=== PATIENT | female | born 1980 | race Caucasian/White ===

== ENCOUNTER 2021-10-04 18:06 | Emergency (ER) | payer MEDICAID ==
[~2021-10-04] VITALS: Ht 167.6 cm; Wt 158.8 kg
[2021-10-04 19:09] LABS: Urine Bacteria NONE SEEN /hpf (None Seen); Urine Blood 3+ /uL (Negative); Urine Mucus FEW (None Seen); Urine Specific Gravity 1.031 (1.001-1.035); Urine WBC 3 /hpf (0 - 5)
[2021-10-04 19:16] LABS: Basophils # (auto) 0.1 10 ^3/uL (0-0.2); Basophils % (auto) 0.8 % (0.0-2.0); Eosinophils # (auto) 0.2 10 ^3/uL (0-0.8); Eosinophils % (auto) 1.5 % (0.0-7.0); Hematocrit 43.6 % (36.0-46.0); Hemoglobin 14.9 g/dL (12.2-16.2); Lymphocytes # (auto) 3.1 10 ^3/uL (0.4-5.4); Lymphocytes % (auto) 26.8 % (10.0-50.0); Mean Corpuscular Hemoglobin 32.5 pg (28.0-32.0); Mean Corpuscular Hgb Conc. 34.2 g/dL (32.0-36.0); Mean Corpuscular Volume 94.9 fL (80.0-100.0); Monocytes # (auto) 0.6 10 ^3/uL (0-1.3); Monocytes % (auto) 5.3 % (0.0-12.0); Neutrophils # (auto) 7.5 10 ^3/uL (1.6-8.6); Neutrophils % (auto) 65.6 % (37.0-80.0); Nucleated Red Blood Cells % 0.2 %; Red Cell Distribution Width 13.3 % (11.8-14.3); White Blood Cell 11.5 10^3/uL (4.4-10.8)
[2021-10-04 19:31] LABS: Albumin 3.6 g/dL (3.4-5.0); Calcium 8.4 mg/dL (8.5-10.1); Potassium 4.3 mmol/L (3.5-5.1)
[2021-10-04 19:35] LABS: BUN/Creatinine Ratio 18.7; Bilirubin, Total 0.3 mg/dL (0.2-1.0)
[2021-10-04] MEDS ORDERED: fentaNYL CITRATE 100 MCG/2 ML VL IV ONE (20:00)
[2021-10-04] MEDS ORDERED: TAMSULOSIN HYDROCHLORIDE 0.4 MG CAP PO ONE (21:45)
[2021-10-04] MEDS ORDERED: ONDANSETRON HCL 4 MG/2 ML VIAL IV ONE (21:45)
[2021-10-04] MEDS ORDERED: HYDROcodone-ACET 5/325MG TAB PO ONE (22:00)
[2021-10-04] MEDS ORDERED: ONDANSETRON HCL 8 MG in D5W 5% 50 ML IV ONE (22:00)
[2021-10-04] MEDS ORDERED: TAM04C PO ×2 (22:50→23:46)
[2021-10-04] MEDS ORDERED: HYDR-4902 PO ×2 (22:50→23:46)
[2021-10-04] MEDS ORDERED: ONDA-144 PO ×2 (22:50→23:46)
[2021-10-04 23:42] VITALS: BP 146/93
== END 2021-10-05 00:32 | disposition home or self-care (01) ==
LOC: ER 18:08
DX: N20.0 Calculus of kidney (principal); Z79.899 Other long term (current) drug therapy
CPT/HCPCS: 36415; 74176; 80053; 81001; 85025; 96374; 99284; J2405; J3010; J7060

== ENCOUNTER 2025-04-08 09:47 | Inpatient (IN) | payer MEDICAID ==
[~2025-04-08] VITALS: Ht 167.6 cm; Wt 177.2 kg
[~2025-04-08 09:47] MED LIST: HYDR-4902 PO; ONDA-144 PO; TAMS-35 PO
[2025-04-08 10:28] VITALS: PULSE 95; RESP 19; O2SAT 95
[2025-04-08 10:35] LABS: Urine Protein, UAD Negative (Negative)
--- NOTE | 2025-04-08 10:47 | ED.PDOC ---
History of Present Illness HPI Comments This is a 44-year-old female with past medical history of umbilical hernia , kidney stone presented to the ED with a chief complaint of severe left pelvic pain with nausea since last night. Patient states that the pain started since last night, it was sharp in nature, 04/19, localized and associated with nausea. She mentioned that she was diagnosed with umbilical hernia few years ago and she has a IUD placed 2 months ago. She denies fever, chills, vomiting, burning sensation in the urine, hematuria, altered bowel habit or any recent traveling. PCP: MD Ty Chief Complaint: Pelvic Pain Time Seen by MD: 10:24 Primary Care Provider: ANGÉLICA Allergies: Coded Allergies: NO KNOWN ALLERGIES (Unverified , 05/08/10) Home Meds Active Scripts Hydrocodone-Acetaminophen (Hydrocodone Bitartrate/AC 5-325 mg) 1 Tab Tab, 1 TAB PO [id number] PRN for 5 Days, #10 TAB Prov:WILBERT HOOVRE DO 10/04/21 Tamsulosin Hcl (Flomax) 0.4 Mg Cap, 0.4 MG PO QAM for 20 Days, #20 CAP Prov:WILBERT HOOVER DO 10/04/21 Ondansetron (Zofran) 4 Mg Tab, 4 MG PO Q8HPRN PRN for 5 Days, #12 MG Prov:WILBERT HOOVER DO 10/04/21 Information Source: Patient Mode of Arrival: Ambulatory Severity: Severe Timing: Hours Duration: Since onset Prehospital treatment: None Past Medical History PAST MEDICAL HISTORY: Denies Past Medical History (Other): Umbilical hernia Surgical History: Cholecystectomy, Denies all surgeries CHIEF GAUGER History: Denies all CHIEF GAUGER Hx Family History Family History: Reviewed,noncontributory to illness Social History Smoker: Cigarettes, Less Than 1 Pack/Day Alcohol: Occasionally Drugs: Denies Drug Use Lives In: Home Constitutional: denies: chills, diaphoresis, fatigue, fever, malaise, sweats, weakness, others EENTM: denies: blurred vision, double vision, ear bleeding, ear discharge, ear drainage, ear pain, ear ringing, eye pain, eye redness, hearing loss, mouth pain, mouth swelling, nasal discharge, nose bleeding, nose congestion, nose pain, photophobia, tearing, throat pain, throat swelling, voice changes, others Respiratory: denies: cough, hemoptysis, orthopnea, SOB at rest, shortness of breath, SOB with excertion, stridor, wheezing, others Cardiovascular: denies: chest pain, dizzy spells, diaphoresis, Dyspnea on exertion, edema, irregular heart beat, left arm pain, lightheadedness, palpitations, PND, syncope, others Gastrointestinal: reports: abdominal pain, nausea; denies: abdomen distended, blood streaked bowels, constipated, diarrhea, dysphagia, difficulty swallowing, hematemesis, melena, poor appetite, poor fluid intake, rectal bleeding, rectal pain, vomiting, others Genitourinary: denies: abnormal vagina bleeding, burning, dyspareunia, dysuria, flank pain, frequency, hematuria, incontinence, pain, , vagina discharge, urgency, others Neurological: denies: dizziness, fainting, headache, left sided numbness, left sided weakness, numbness, paresthesia, pre-existing deficit, right sided numbness, right sided weakness, seizure, speech problems, tingling, tremors, weakness, others Musculoskeletal: denies: back pain, gout, joint pain, joint swelling, muscle pain, muscle stiffness, neck pain, others Integumetry: denies: bruises, change in color, change in hair/nails, dryness, laceration, lesions, lumps, rash, wounds, others Allergic/Immunocompromised: denies: Difficulty Healing, Frequent Infections, Hives, Itching, others Hematologic/Lymphatic: denies: anemia, blood clots, easy bleeding, easy bruising, swollen glands, others Endocrine: denies: excessive hunger, excessive sweating, excessive thirst, excessive urination, flushing, intolerance to cold, intolerance to heat, unexplained weight gain, unexplained weight loss, others Psychiatric: denies: anxiety, bipolar disorder, depression, hopeless, panic disorder, schizophrenia, sleepless, suicidal, others Physical Exam General Appearance: Mild Distress HEENT: Normal ENT Inspection, Pharynx Normal, TMs Normal Neck: Full Range of Motion, Non-Tender, Normal, Normal Inspection Respiratory: Chest Non-Tender, Lungs Clear, No Accessory Muscle Use, No Respiratory Distress, Normal Breath Sounds Cardiovascular: No Edema, No JVD, No Murmur, No Gallop, Normal Peripheral Pulses, Regular Rate/Rhythm Breast Exam: Deferred Gastrointestinal: Guarding, Hernia, LLQ, Normal Bowel Sounds, Tenderness Genitalia: Deferred Pelvic: Deferred Rectal: Deferred Extremities: No calf tenderness, Normal capillary refill, Normal inspection, Normal range of motion, Non-tender, No pedal edema Neurologic: NOT DONE Cerebellar Function: NOT DONE Reflexes: NOT DONE Skin: NOT DONE Peripheral Pulses: 2+ carotid (R), 2+ carotid (L), 2+ femoral (R), 2+ femoral (L), 2+ dorsalis pedis (R), 2+ dorsalis pedis (L), 2+ Radial (R), 2+ Radial (L), 2+ Brachial (R), 2+ Brachial (L) Lymphatic: NOT DONE Was a procedure done? Was a procedure done?: No Differential Dx Considerations may include: Diverticulitis, colitis, Lt hydoureteonephrosis, incarcerated hernia, malposition of IUD X-Ray, Labs, Meds, VS Vital Signs Date Time Temp Pulse Resp B/P (MAP) Pulse Ox O2 Delivery O2 Flow Rate FiO2 04/08/25 11:25 90 16 137/93 04/08/25 10:55 95 20 147/93 04/08/25 10:28 97.1 97 19 149/70 (96) 95 97.1 04/08/25 10:28 95 19 95 Room Air* 0 21 04/08/25 09:48 98.1 108 20 160/103 96 98.1 Lab Test 04/08/25 11:40 04/08/25 10:47 04/08/25 10:06 Range/Units Urine Test Negative Negative White Blood Count 13.0 H 4.4-10.8 10^3/uL Red Blood Count 4.79 4.0-5.20 10^6/uL Hemoglobin 15.7 12.2-16.2 g/dL Hematocrit 45.1 36.0-46.0 % Mean Corpuscular Volume 94.1 80.0-100.0 fL Mean Corpuscular Hemoglobin 32.7 H 28.0-32.0 pg Mean Corpuscular Hemoglobin Concent 34.8 32.0-36.0 g/dL Red Cell Distribution Width 13.5 11.8-14.3 % Platelet Count 254 140-450 10^3/uL Mean Platelet Volume 7.7 6.9-10.8 fL Neutrophils (%) (Auto) 74.6 37.0-80.0 % Lymphocytes (%) (Auto) 18.5 10.0-50.0 % Monocytes (%) (Auto) 5.7 0.0-12.0 % Eosinophils (%) (Auto) 0.7 0.0-7.0 % Basophils (%) (Auto) 0.5 0.0-2.0 % Neutrophils # (Auto) 9.7 H 1.6-8.6 10 ^3/uL Lymphocytes # (Auto) 2.4 0.4-5.4 10 ^3/uL Monocytes # (Auto) 0.7 0-1.3 10 ^3/uL Eosinophils # (Auto) 0.1 0-0.8 10 ^3/uL Basophils # (Auto) 0.1 0-0.2 10 ^3/uL Nucleated Red Blood Cells 0.0 % Sodium Level 138 136-145 mmol/L Potassium Level 4.2 3.5-5.1 mmol/L Chloride Level 104 98-107 mmol/L Carbon Dioxide Level 26 20-31 mmol/L Anion Gap 8 5-15 Blood Urea Nitrogen 14 9-23 mg/dL Creatinine 0.80 0.550-1.02 mg/dL Glomerular Filtration Rate Calc 94 >90 mL/min BUN/Creatinine Ratio 17.5 10.0-20.0 Serum Glucose 117 H 74-106 mg/dL Calcium Level 9.9 8.7-10.4 mg/dL Urine Color Light-yellow Yellow Urine Clarity Clear Clear Urine pH 7.0 5.0-9.0 Urine Specific [place] 1.019 1.001-1.035 Urine Protein Negative Negative Urine Ketones Negative Negative Urine Blood Negative Negative /uL Urine Nitrite Negative Negative Urine Bilirubin Negative Negative Urine Urobilinogen Normal Negative mg/dL Urine Leukocyte Esterase Negative Negative /uL Urine RBC 1 0 - 4 /hpf Urine Microscopic WBC 3 0-5 /HPF Urine Squamous Epithelial Cells Few <5 /hpf Urine Bacteria None seen None Seen /hpf Urine Glucose Normal Normal mg/dL Current Medications Medications (Trade) Dose Ordered Sig/Kassie Route Start Time Stop Time Status Last Admin Morphine Sulfate 4 mg ONCE ONCE IV 04/08/25 10:45 04/08/25 10:46 DC 04/08/25 10:55 Ondansetron HCl (Zofran) 4 mg ONCE ONCE IV 04/08/25 10:45 04/08/25 10:48 DC 04/08/25 10:55 Sodium Chloride 1,000 ml @ 100 mls/hr Q10H ONCE IV 04/08/25 10:45 04/08/25 20:44 04/08/25 10:55 Ceftriaxone Sodium 50 ml @ 100 mls/hr ONCE ONCE IV 04/08/25 13:45 04/08/25 14:14 04/08/25 14:01 Metronidazole 100 ml @ 100 mls/hr ONCE ONCE IV 04/08/25 13:45 04/08/25 14:44 04/08/25 14:01 Images Reviewed?: Images reviewed and evaluated by me Time of 1ST Reevaluation: 13:45 Reevaluation 1ST: Unchanged Patient Education/Counseling: Diagnosis, Treatment Family Education/Counseling: No Family Present SEPSIS Sepsis Screen Date sepsis recognized/suspect: Apr 08, 2025 Time Sepsis recognized/suspect: 947 Recent Procedure: No On Antibiotic Therapy: No Respiratory Rate >20: No Heart Rate >90: Yes Temp<36 C (96.8 F) or >38.3 C: No SBP <90 or MAP <65 mmHG: No New Acute Mental Status Change: No Is the patient on CPAP, BIPAP,: No Physician Orders Ct Ab Pel With Iv Con Only (04/08/25 10:32) Sodium Chloride 0.9% (04/08/25 10:45) Npo (Nothing By Mouth) Diet (04/08/25 Lunch) Ceftriaxone 1gm/50ml D5w (Rocephin) (04/08/25 13:45) Metronidazole 500mg/100ml (Flagyl 500mg/ (04/08/25 13:45) Vital Signs Date Time Temp Pulse Resp B/P (MAP) Pulse Ox O2 Delivery O2 Flow Rate FiO2 04/08/25 11:25 90 16 137/93 04/08/25 10:55 95 20 147/93 04/08/25 10:28 97.1 97 19 149/70 (96) 95 97.1 04/08/25 10:28 95 19 95 Room Air* 0 21 04/08/25 09:48 98.1 108 20 160/103 96 98.1 Laboratory Tests Test 04/08/25 10:47 White Blood Count 13.0 10^3/uL (4.4-10.8) H Medications Medications Dose Ordered Sig/Kassie Route Start Time Stop Time Status Last Admin Dose Admin Ceftriaxone Sodium 50 ml @ 100 mls/hr ONCE ONCE IV 04/08/25 13:45 04/08/25 14:14 04/08/25 14:01 Metronidazole 100 ml @ 100 mls/hr ONCE ONCE IV 04/08/25 13:45 04/08/25 14:44 04/08/25 14:01 Morphine Sulfate 4 mg ONCE ONCE IV 04/08/25 10:45 04/08/25 10:46 DC 04/08/25 10:55 Ondansetron HCl 4 mg ONCE ONCE IV 04/08/25 10:45 04/08/25 10:48 DC 04/08/25 10:55 Sodium Chloride 1,000 ml @ 100 mls/hr Q10H ONCE IV 04/08/25 10:45 04/08/25 20:44 04/08/25 10:55 Departure 1 Departure Time of Disposition: 14:00 Impression: Primary Impression: Diverticulitis Additional Impression: Kidney stone on left side Disposition: 30 STILL A PATIENT Admit to: Med Surg Condition: Guarded Critical Care Note Critical Care Time?: No Stability Stability form required: RITA Luong RESIDENT Apr 08, 2025 10:47
[2025-04-08] MEDS: SODIUM CHLORIDE 0.9% 1,000 ML IV ONE ×2 (10:55→17:25)
[2025-04-08] MEDS: ONDANSETRON HCL 4 MG/2 ML VIAL IV ONE (10:55)
[2025-04-08] MEDS: MORPHINE SULFATE 4 MG/ML SYR/VIAL IV ONE (10:55)
[2025-04-08 11:10] LABS: Hematocrit 45.1 % (36.0-46.0); Hemoglobin 15.7 g/dL (12.2-16.2); Mean Corpuscular Hemoglobin 32.7 pg (28.0-32.0); Mean Corpuscular Volume 94.1 fL (80.0-100.0); Nucleated Red Blood Cells % 0.0 %
[2025-04-08 11:14] LABS: Chloride 104 mmol/L (98-107); Potassium 4.2 mmol/L (3.5-5.1); Sodium 138 mmol/L (136-145)
[2025-04-08 11:15] LABS: Carbon Dioxide 26 mmol/L (20-31)
[2025-04-08 11:16] LABS: Calcium 9.9 mg/dL (8.7-10.4)
[2025-04-08 11:17] LABS: Anion Gap 8 (5-15)
[2025-04-08 11:20] LABS: BUN/Creatinine Ratio 17.5 (10.0-20.0); Blood Urea Nitrogen 14 mg/dL (9-23); Glucose 117 mg/dL (74-106)
[2025-04-08] MEDS: IOHEXOL 300 MG/ML 100ML BOTTLE IJ ONE (11:55)
--- NOTE | 2025-04-08 12:56 | DVH ---
Exam: CT CT AB PEL WITH IV CON ONLY History: Lt pelvic pain COMPARISON: None Technique: Multidetector spiral CT of the abdomen and pelvis was performed from lung bases to pubic symphysis. Intravenous contrast was administered during this examination. Portal venous imaging was obtained. Axial, coronal and sagittal multiplanar reformats were performed by the technologist on a separate workstation. Radiation Dose : Abdomen/Pelvis: CTDIvol 27.87 mGy, DLP 1727.62 mGy*cm. CONTRAST: Type of contrast: Omni 300 Contrast injected: 100 mL Findings: Lung Bases: No acute or significant lung base finding. Normal heart size. No pleural or pericardial effusion. Liver: Diffuse hepatic steatosis. Gallbladder and biliary Tree: Gallbladder is surgically absent. Spleen: Unremarkable Pancreas: The pancreas is normal in appearance without focal lesions or abnormal enhancement. Adrenal Glands: Unremarkable Kidneys: No hydronephrosis. Bladder: Unremarkable Bowel: The stomach is grossly normal in appearance. Small bowel and colon are normal in caliber and d istribution. Normal appendix is visualized in the right lower quadrant without findings of appendicit is. Sigmoid diverticulosis. Wall thickening and adjacent stranding of the sigmoid colon. No loculate d fluid collection identified. Ascites: Absent Lymphadenopathy: No mesenteric, retroperitoneal or periportal lymphadenopathy. Abdominal wall and Mesentery: Fat containing periumbilical hernia. Vasculature: The visualized abdominal aorta is normal in size and caliber. Abdominal and pelvic vess els demonstrate normal enhancement. Pelvic Organs: Intrauterine device in place. Musculoskeletal: No aggressive focal bony lesions, acute fractures or dislocation. IMPRESSION: 1. Acute diverticulitis. No pericolonic abscess identified. Clinical correlation and continued follo w-up is recommended. 2. Diffuse hepatic steatosis. Fat containing periumbilical hernia. Radiation optimization: All CT scans at this facility use at least one of these dose optimization jael hniques: Automated exposure control mA and/or kV adjustment per patient size (includes targeted exams where dose is matched to clinical indication) or iterative reconstruction. HS:Y
[2025-04-08] MEDS: cefTRIAXone 1GM/50ML D5W 50 ML IV ONE (14:01)
[2025-04-08] MEDS: KETOROLAC TROMETH 30 MG/ML 1ML VIAL IV ONE (14:41)
[2025-04-08] MEDS ORDERED: DOCUSATE SOD 100 MG CAP PO PRN (16:45)
[2025-04-08] MEDS ORDERED: ACETAMINOPHEN 325 MG TAB PO PRN (16:45)
--- NOTE | 2025-04-08 17:00 | DVHHP2 ---
History of Present Illness Reason for Visit: Abdominal pain History of Present Illness Precious Montemayor is a 44-year-old female with no significant past medical history, who came to the hospital due to abdominal pain. Patient states her stomach began hurting around 1999 last night. The pain continued to worsen prompting her to come in. She states she has never been diagnosed with diverticulosis and this is the first time she has experienced anything like this. Past Surgical History: Cholecystectomy Smoke: <1 pack per day ALCOHOL: rare Drugs: None Lives: with Family Domestic Violence: Neg Review of Systems Constitutional: No: Fever, Chills, Sweats, Weakness, Malaise, Other Eyes: No: Pain, Vision change, Conjunctivae inflammation, Eyelid inflammation, Other, Redness ENT: No: Ear pain, Ear discharge, Nose pain, Nose discharge, Nose congestion, Mouth pain, Mouth swelling, Throat pain, Throat swelling, Other Respiratory: No: Cough, Dry, Shortness of breath, SOB with excertion, Wheezing, Hemoptysis, Pleuritic Pain, Sputum, Wheezing, Other Cardiovascular: No: Chest Pain, Palpitations, Orthopnea, Paroxysmal Noc. Dyspnea, Edema, Lt Headedness, Other Gastrointestinal: Nausea, Abdominal Pain; No: Vomiting, Diarrhea, Constipation, Melena, Hematochezia, Other Genitourinary: No Dysuria, No Frequency, No Incontinence, No Hematuria, No Retention, No Other Musculoskeletal: No: other, neck pain, shoulder pain, arm pain, back pain, hand pain, leg pain, foot pain Skin: No: Rash, Lesions, Jaundice, Bruising, Other Neurological: No: Weakness, Numbness, Incoordination, Change in speech, Confusion, Seizures, Other Allergies: Coded Allergies: NO KNOWN ALLERGIES (Unverified , 05/08/10) Medications Current Medications Medications Dose Ordered Sig/Kassie Route Start Time Stop Time Status Last Admin Dose Admin Acetaminophen/ Hydrocodone Bitart 1 tab Q4HP PRN PO 04/08/25 16:45 UNV Ondansetron HCl 4 mg Q4HP PRN IV 04/08/25 16:45 UNV Docusate Sodium 100 mg BIDPRN PRN PO 04/08/25 16:45 UNV Acetaminophen 650 mg Q6HP PRN PO 04/08/25 16:45 UNV Ceftriaxone Sodium 50 ml @ 100 mls/hr DAILY@09 IV 04/09/25 09:00 UNV Metronidazole 100 ml @ 100 mls/hr Q8HR IV 04/08/25 22:00 UNV Exam Vital Signs Vital Signs Date Time Temp Pulse Resp B/P (MAP) Pulse Ox O2 Delivery O2 Flow Rate FiO2 04/08/25 15:21 97 Room Air* 0 21 04/08/25 14:45 98.2 88 18 143/86 (105) 98.2 General Appearance: Alert, Oriented X3, Cooperative, mild distress HEENT: Atraumatic, PERRLA Respiratory: Clear to auscultation, Normal air movement Cardiovascular: Regular rate, Normal S1, Normal S2, No murmurs Abdominal: Normal bowel sounds, Soft, Other (LLQ pain) Extremities: No clubbing, No cyanosis, No edema, Normal pulses, No tenderness/swelling Skin: No rashes, No breakdown, No significant lesion Neuro: Normal gait, Normal speech, Strength at 5/5 X4 ext Psych/Mental Status: Mental status NL, Mood NL Labs/Xrays Labs Test 04/08/25 11:40 04/08/25 10:47 04/08/25 10:06 Range/Units Urine Test Negative Negative White Blood Count 13.0 H 4.4-10.8 10^3/uL Red Blood Count 4.79 4.0-5.20 10^6/uL Hemoglobin 15.7 12.2-16.2 g/dL Hematocrit 45.1 36.0-46.0 % Mean Corpuscular Volume 94.1 80.0-100.0 fL Mean Corpuscular Hemoglobin 32.7 H 28.0-32.0 pg Mean Corpuscular Hemoglobin Concent 34.8 32.0-36.0 g/dL Red Cell Distribution Width 13.5 11.8-14.3 % Platelet Count 254 140-450 10^3/uL Mean Platelet Volume 7.7 6.9-10.8 fL Neutrophils (%) (Auto) 74.6 37.0-80.0 % Lymphocytes (%) (Auto) 18.5 10.0-50.0 % Monocytes (%) (Auto) 5.7 0.0-12.0 % Eosinophils (%) (Auto) 0.7 0.0-7.0 % Basophils (%) (Auto) 0.5 0.0-2.0 % Neutrophils # (Auto) 9.7 H 1.6-8.6 10 ^3/uL Lymphocytes # (Auto) 2.4 0.4-5.4 10 ^3/uL Monocytes # (Auto) 0.7 0-1.3 10 ^3/uL Eosinophils # (Auto) 0.1 0-0.8 10 ^3/uL Basophils # (Auto) 0.1 0-0.2 10 ^3/uL Nucleated Red Blood Cells 0.0 % Sodium Level 138 136-145 mmol/L Potassium Level 4.2 3.5-5.1 mmol/L Chloride Level 104 98-107 mmol/L Carbon Dioxide Level 26 20-31 mmol/L Anion Gap 8 5-15 Blood Urea Nitrogen 14 9-23 mg/dL Creatinine 0.80 0.550-1.02 mg/dL Glomerular Filtration Rate Calc 94 >90 mL/min BUN/Creatinine Ratio 17.5 10.0-20.0 Serum Glucose 117 H 74-106 mg/dL Calcium Level 9.9 8.7-10.4 mg/dL Urine Color Light-yellow Yellow Urine Clarity Clear Clear Urine pH 7.0 5.0-9.0 Urine Specific [place] 1.019 1.001-1.035 Urine Protein Negative Negative Urine Ketones Negative Negative Urine Blood Negative Negative /uL Urine Nitrite Negative Negative Urine Bilirubin Negative Negative Urine Urobilinogen Normal Negative mg/dL Urine Leukocyte Esterase Negative Negative /uL Urine RBC 1 0 - 4 /hpf Urine Microscopic WBC 3 0-5 /HPF Urine Squamous Epithelial Cells Few <5 /hpf Urine Bacteria None seen None Seen /hpf Urine Glucose Normal Normal mg/dL Exam: CT CT AB PEL WITH IV CON ONLY Findings: Lung Bases: No acute or significant lung base finding. Normal heart size. No pleural or pericardial effusion. Liver: Diffuse hepatic steatosis. Gallbladder and biliary Tree: Gallbladder is surgically absent. Spleen: Unremarkable Pancreas: The pancreas is normal in appearance without focal lesions or abnormal enhancement. Adrenal Glands: Unremarkable Kidneys: No hydronephrosis. Bladder: Unremarkable Bowel: The stomach is grossly normal in appearance. Small bowel and colon are normal in caliber and distribution. Normal appendix is visualized in the right lower quadrant without findings of appendicitis. Sigmoid diverticulosis. Wall thickening and adjacent stranding of the sigmoid colon. No loculated fluid collection identified. Ascites: Absent Lymphadenopathy: No mesenteric, retroperitoneal or periportal lymphadenopathy. Abdominal wall and Mesentery: Fat containing periumbilical hernia. Vasculature: The visualized abdominal aorta is normal in size and caliber. Abdominal and pelvic vessels demonstrate normal enhancement. Pelvic Organs: Intrauterine device in place. Musculoskeletal: No aggressive focal bony lesions, acute fractures or dislocation. IMPRESSION: 1. Acute diverticulitis. No pericolonic abscess identified. Clinical correlation and continued follow-up is recommended. 2. Diffuse hepatic steatosis. Fat containing periumbilical hernia. SEPSIS Sepsis Screen Date sepsis recognized/suspect: Apr 08, 2025 Time Sepsis recognized/suspect: 1520 Recent Procedure: No On Antibiotic Therapy: No Respiratory Rate >20: No Heart Rate >90: No Temp<36 C (96.8 F) or >38.3 C: No SBP <90 or MAP <65 mmHG: No New Acute Mental Status Change: No Is the patient on CPAP, BIPAP,: No Physician Orders Ct Ab Pel With Iv Con Only (04/08/25 10:32) Sodium Chloride 0.9% (04/08/25 10:45) Admit (04/08/25 16:42) Code Status (04/08/25 16:42) Hydrocodone-Acet 5/325mg Tab ([place] 5/32 (04/08/25 16:45) Ondansetron Hcl (Zofran) (04/08/25 16:45) Docusate Sodium Capsule (Colace Capsule) (04/08/25 16:45) Complete Blood Count (04/09/25 04:00) Comprehensive Metabolic Panel (04/09/25 04:00) Condition: Serious (04/08/25 16:42) Acetaminophen Tablet (Tylenol Tablet) (04/08/25 16:45) Clear Liq Diet (04/08/25 Dinner) Ceftriaxone 1gm/50ml D5w (Rocephin) (04/09/25 09:00) Metronidazole 500mg/100ml (Flagyl 500mg/ (04/08/25 22:00) Vital Signs Date Time Temp Pulse Resp B/P (MAP) Pulse Ox O2 Delivery O2 Flow Rate FiO2 04/08/25 15:21 97 Room Air* 0 21 04/08/25 14:45 98.2 88 18 143/86 (105) 95 98.2 04/08/25 11:25 90 16 137/93 04/08/25 10:55 95 20 147/93 04/08/25 10:28 97.1 97 19 149/70 (96) 95 97.1 04/08/25 10:28 95 19 95 Room Air* 0 21 04/08/25 09:48 98.1 108 20 160/103 96 98.1 Laboratory Tests Test 04/08/25 10:47 White Blood Count 13.0 10^3/uL (4.4-10.8) H Medications Medications Dose Ordered Sig/Kassie Route Start Time Stop Time Status Last Admin Dose Admin Ceftriaxone Sodium 50 ml @ 100 mls/hr ONCE ONCE IV 04/08/25 13:45 04/08/25 14:14 DC 04/08/25 14:01 100 MLS/HR Ketorolac Tromethamine 15 mg ONCE ONCE IV 04/08/25 14:30 04/08/25 14:31 DC 04/08/25 14:41 15 MG Metronidazole 100 ml @ 100 mls/hr ONCE ONCE IV 04/08/25 13:45 04/08/25 14:44 DC 04/08/25 14:01 100 MLS/HR Morphine Sulfate 4 mg ONCE ONCE IV 04/08/25 10:45 04/08/25 10:46 DC 04/08/25 10:55 4 MG Ondansetron HCl 4 mg ONCE ONCE IV 04/08/25 10:45 04/08/25 10:48 DC 04/08/25 10:55 4 MG Sodium Chloride 1,000 ml @ 100 mls/hr Q10H ONCE IV 04/08/25 10:45 04/08/25 20:44 04/08/25 10:55 100 MLS/HR Assessment/Plan Assessment/Plan Assessment: Diverticulitis, Leukocytosis, Morbid obesity, Plan: Admit to Med-Surg, GI consult, Clear liquid diet, IV antibiotics, IV hydration, IV Protonix, Plan discussed with: Patient My Orders Orders - HOA BRADFORD Procedure Category Date Status Time Admit ADMIT 04/08/25 Transmitted 16:42 Code Status CODE 04/08/25 Transmitted 16:42 Hydrocodone-Acet PHA 04/08/25 Logged 5/325mg Tab ([place] 16:45 Ondansetron Hcl PHA 04/08/25 Logged (Zofran) 16:45 Docusate Sodium PHA 04/08/25 Logged Capsule (Colace 16:45 Complete Blood Count LAB 04/09/25 Verified 04:00 Comprehensive LAB 04/09/25 Verified Metabolic Panel 04:00 Condition: Serious VLADIMIR 04/08/25 In Process 16:42 Acetaminophen Tablet PHA 04/08/25 Logged (Tylenol Tablet) 16:45 Clear Liq Diet DIET 04/08/25 Transmitted Dinner Ceftriaxone 1gm/50ml PHA 04/09/25 Logged D5w (Rocephin) 09:00 Metronidazole [facility] 04/08/25 Logged 500mg/100ml (Flagyl 22:00 Date of Service: Apr 08, 2025 Billing Provider: HOA BRADFORD Common Visit Codes: [id number] INP/OBS CARE (MOD) HOA BRADFORD Apr 08, 2025 17:00
[2025-04-08 19:15] VITALS: BP 121/68; PULSE 88; RESP 17; TEMP 97.6; O2SAT 95
[2025-04-08 23:04] VITALS: BP 121/68; PULSE 77; PULSE 88; RESP 17; RESP 18; TEMP 97.6; O2SAT 95; O2SAT 99
[2025-04-08] MEDS: HYDROcodone-ACET 5/325MG TAB PO PRN (23:08)
[2025-04-09] VITALS (8 sets, daily range): BP systolic 104–116; BP diastolic 63–76; PULSE 67–83; RESP 17–21; TEMP 97–98.2; O2SAT 93–97
[2025-04-09] MEDS: KETOROLAC TROMETH 30 MG/ML 1ML VIAL IV ONE (04:30)
[2025-04-09 06:58] LABS: Hematocrit 37.7 % (36.0-46.0); Hemoglobin 13.5 g/dL (12.2-16.2); Mean Corpuscular Hemoglobin 33.7 pg (28.0-32.0); Mean Corpuscular Volume 93.9 fL (80.0-100.0); Nucleated Red Blood Cells % 0.1 %
[2025-04-09 07:10] LABS: Alanine Aminotransferase 11 U/L (7-40); Alkaline Phosphatase 71 U/L (46-116); Anion Gap 7 (5-15); BUN/Creatinine Ratio 15.5 (10.0-20.0); Blood Urea Nitrogen 13 mg/dL (9-23); Calcium 9.0 mg/dL (8.7-10.4); Carbon Dioxide 28 mmol/L (20-31); Chloride 103 mmol/L (98-107); Glucose 105 mg/dL (74-106); Potassium 3.8 mmol/L (3.5-5.1); Sodium 138 mmol/L (136-145)
[2025-04-09 07:11] LABS: Albumin 3.8 g/dL (3.2-4.8); Bilirubin, Total 1.0 mg/dL (0.2-1.0); Total Protein 5.6 g/dL (5.7-8.2)
[2025-04-09] MEDS: cefTRIAXone 1GM/50ML D5W 50 ML IV SCH (09:34)
[2025-04-09] MEDS: PANTOPRAZOLE 40 MG/10 ML VIAL INJ IV SCH (09:34)
--- NOTE | 2025-04-09 10:23 | DVHPN2 ---
Progress Note Date Seen: Apr 09, 2025 Medical Necessity Reason Pt with a Central, PICC or Fol: No Subjective Patient reports: No new complaints Review of Systems: HEENT:Normal, CVS:Normal, RESPIRATORY:Normal, GI:Normal, :Normal, MSK:Normal, NEURO:Normal Objective vital signs Vital Sign Date Time Temp Pulse Resp B/P (MAP) Pulse Ox O2 Delivery O2 Flow Rate FiO2 04/09/25 09:00 97.6 75 20 110/75 (87) 93 97.6 04/08/25 23:04 Room Air* 0 21 Total Intake and Output 04/08/25 04/08/25 04/09/25 15:00 23:00 07:00 Intake Total 1000 ml 150 ml 150 ml Balance 1000 ml 150 ml 150 ml medications Current Medications Medications Dose Ordered Sig/Kassie Route Start Time Stop Time Status Last Admin Dose Admin Acetaminophen/ Hydrocodone Bitart 1 tab Q4HP PRN PO 04/08/25 16:45 04/09/25 09:45 1 TAB Ondansetron HCl 4 mg Q4HP PRN IV 04/08/25 16:45 Docusate Sodium 100 mg BIDPRN PRN PO 04/08/25 16:45 Acetaminophen 650 mg Q6HP PRN PO 04/08/25 16:45 Ceftriaxone Sodium 50 ml @ 100 mls/hr DAILY@09 IV 04/09/25 09:00 04/09/25 09:34 100 MLS/HR Metronidazole 100 ml @ 100 mls/hr Q8HR IV 04/08/25 22:00 04/09/25 05:58 100 MLS/HR Pantoprazole Sodium 40 mg DAILY IV 04/09/25 10:00 04/09/25 09:34 40 MG Examination: GENERAL:Normal, HEENT:Normal, NECK:Normal, LUNGS:Normal, CVS:Normal, ABDOMEN:Normal, ABDOMEN:Abnormal (abd tenderness), MSK:Normal, SKIN:Normal, NEURO:Normal, :Normal laboratory and microbiology Laboratory Tests 04/09/25 06:18 Test 04/09/25 06:18 Range/Units Serum Glucose 105 74-106 mg/dL Problem List/Assessment/Plan Problem List/Assessment/Plan #1 acute diverticulitis/sepsis: ivf, pain meds, iv antibiotics #2 morbid obesity Plan discussed with: Patient Date of Service: Apr 09, 2025 Billing Provider: ARLENE STAHL MD Common Visit Codes: [id number] INP/OBS CARE(HIGH) ARLENE STAHL MD Apr 09, 2025 10:22
[2025-04-09] MEDS: SODIUM CHLORIDE 0.9% 1,000 ML IV SCH (10:30)
[2025-04-09] MEDS: MORPHINE SULFATE INJ 2 MG/ml SYRG IV PRN (23:04)
[2025-04-09] MEDS: ONDANSETRON HCL 4 MG/2 ML VIAL IV PRN (23:04)
[2025-04-10] VITALS (8 sets, daily range): BP systolic 109–122; BP diastolic 64–93; PULSE 61–88; RESP 17–20; TEMP 97.9–98.1; O2SAT 94–98
[2025-04-10 06:09] LABS: Hematocrit 36.6 % (36.0-46.0); Hemoglobin 13.1 g/dL (12.2-16.2); Mean Corpuscular Hemoglobin 33.7 pg (28.0-32.0); Mean Corpuscular Volume 94.3 fL (80.0-100.0); Nucleated Red Blood Cells % 0.1 %
[2025-04-10 06:25] LABS: Chloride 104 mmol/L (98-107); Potassium 4.1 mmol/L (3.5-5.1); Sodium 140 mmol/L (136-145)
[2025-04-10 06:26] LABS: Anion Gap 7 (5-15); Carbon Dioxide 29 mmol/L (20-31)
[2025-04-10 06:27] LABS: Calcium 8.5 mg/dL (8.7-10.4)
[2025-04-10 06:31] LABS: BUN/Creatinine Ratio 10.7 (10.0-20.0); Blood Urea Nitrogen 9 mg/dL (9-23); Glucose 93 mg/dL (74-106)
--- NOTE | 2025-04-10 13:27 | DVHINCON2 ---
GI Consult Consult Note GI consult note Date of Consultation: 04/10/2024 Chief Complaint: Diverticulitis Referring Physician: Michael KHALIL H&P: 44-year-old female admitted to the hospital with abdominal pain. Patient complains of pain in mostly in the left lower quadrant. Denies fevers or chills. No nausea or vomiting. No melena or red blood in stool. No EGD or colonoscopy in past Past Medical History: Denies Past Surgical History: Cholecystectomy Social History: +smoking, denies drinking ETOH and use of illegal drugs. Family History: Noncontributory Review of Systems: Constitutional: no fever, chill, weight loss HEENT: no eye pain, no hearing loss, no oral lesion, no scleral icterus Heart: no chest pain, no chest pressure Lung: no cough, no dyspnea with exertion Abdomen: see HPI Physical exam: General: NAD, AAOX3 Chest: lung craft clear to auscultation Heart: RRR, no murmur Abdomen: Mild left lower quadrant tenderness to palpation, +BS Labs: Labs Test 04/10/25 04:41 04/09/25 06:18 04/08/25 11:40 04/08/25 10:06 Range/Units White Blood Count 8.8 4.4-10.8 10^3/uL Red Blood Count 3.88 L 4.0-5.20 10^6/uL Hemoglobin 13.1 12.2-16.2 g/dL Hematocrit 36.6 36.0-46.0 % Mean Corpuscular Volume 94.3 80.0-100.0 fL Mean Corpuscular Hemoglobin 33.7 H 28.0-32.0 pg Mean Corpuscular Hemoglobin Concent 35.7 32.0-36.0 g/dL Red Cell Distribution Width 13.8 11.8-14.3 % Platelet Count 202 140-450 10^3/uL Mean Platelet Volume 7.8 6.9-10.8 fL Neutrophils (%) (Auto) 63.2 37.0-80.0 % Lymphocytes (%) (Auto) 28.6 10.0-50.0 % Monocytes (%) (Auto) 6.2 0.0-12.0 % Eosinophils (%) (Auto) 1.6 0.0-7.0 % Basophils (%) (Auto) 0.4 0.0-2.0 % Neutrophils # (Auto) 5.6 1.6-8.6 10 ^3/uL Lymphocytes # (Auto) 2.5 0.4-5.4 10 ^3/uL Monocytes # (Auto) 0.5 0-1.3 10 ^3/uL Eosinophils # (Auto) 0.1 0-0.8 10 ^3/uL Basophils # (Auto) 0 0-0.2 10 ^3/uL Nucleated Red Blood Cells 0.1 % Sodium Level 140 136-145 mmol/L Potassium Level 4.1 3.5-5.1 mmol/L Chloride Level 104 98-107 mmol/L Carbon Dioxide Level 29 20-31 mmol/L Anion Gap 7 5-15 Blood Urea Nitrogen 9 9-23 mg/dL Creatinine 0.84 0.550-1.02 mg/dL Glomerular Filtration Rate Calc 88 >90 mL/min BUN/Creatinine Ratio 10.7 10.0-20.0 Serum Glucose 93 74-106 mg/dL Calcium Level 8.5 L 8.7-10.4 mg/dL Total Bilirubin 1.0 0.2-1.0 mg/dL Aspartate Amino Transferase (AST) 17 13-40 U/L Alanine Aminotransferase (ALT) 11 7-40 U/L Alkaline Phosphatase 71 46-116 U/L Total Protein 5.6 L 5.7-8.2 g/dL Albumin 3.8 3.2-4.8 g/dL Urine Test Negative Negative Urine Color Light-yellow Yellow Urine Clarity Clear Clear Urine pH 7.0 5.0-9.0 Urine Specific [place] 1.019 1.001-1.035 Urine Protein Negative Negative Urine Ketones Negative Negative Urine Blood Negative Negative /uL Urine Nitrite Negative Negative Urine Bilirubin Negative Negative Urine Urobilinogen Normal Negative mg/dL Urine Leukocyte Esterase Negative Negative /uL Urine RBC 1 0 - 4 /hpf Urine Microscopic WBC 3 0-5 /HPF Urine Squamous Epithelial Cells Few <5 /hpf Urine Bacteria None seen None Seen /hpf Urine Glucose Normal Normal mg/dL Imaging: CT Abdomen pelvis IMPRESSION: 1. Acute diverticulitis. No pericolonic abscess identified. Clinical correl ation and continued follow-up is recommended. 2. Diffuse hepatic steatosis. Fat containing periumbilical hernia. Assessment: Abdominal pain Acute diverticulitis Hepatic steatosis Periumbilical hernia Plan: Discussed with Dr. Nuno Mendes IV antibiotics Diet as tolerated Outpatient follow-up in GI clinic for further follow-up and recommendations Thank you for this consult Date of Service: Apr 10, 2025 Billing Provider: ENID SIMEON Common Visit Codes: CONSULT ONLY Consultation Codes: [id number] CONSULT <45MIN ENID SIMEON Apr 10, 2025 13:27
--- NOTE | 2025-04-10 16:39 | DVHPN2 ---
Subjective Better Changes from previous H/P or p: Changes Eyes: No Pain, No Vision change, No Conjunctivae inflammation, No Eyelid inflammation, No Other, No Redness ENT: No Ear pain, No Ear discharge, No Nose pain, No Nose discharge, No Nose congestion, No Mouth pain, No Mouth swelling, No Throat pain, No Throat swelling, No Other Cardiovascular: No Chest Pain, No Palpitations, No Orthopnea, No Paroxysmal Noc. Dyspnea, No Edema, No Lt Headedness, No Other Respiratory: No Cough, No Dry, No Shortness of breath, No SOB with excertion, No Wheezing, No Hemoptysis, No Pleuritic Pain, No Sputum, No Other Gastrointestinal: Nausea; No Vomiting; Abdominal Pain; No Diarrhea, No Constipation, No Melena, No Hematochezia, No Other Genitourinary: No Dysuria, No Frequency, No Incontinence, No Hematuria, No Retention, No Other Musculoskeletal: No other, No neck pain, No shoulder pain, No arm pain, No back pain, No hand pain, No leg pain, No foot pain Skin: No Rash, No Lesions, No Jaundice, No Bruising, No Other Objective Vitals Vital Signs Date Time Temp Pulse Resp B/P (MAP) Pulse Ox O2 Delivery O2 Flow Rate FiO2 04/10/25 13:50 98.0 61 17 109/72 (84) 96 98.0 04/10/25 07:40 Room Air* 0 21 Intake/Output Intake and Output 04/10/25 07:00 Intake Total 2600 ml Balance 2600 ml Intake Oral 2450 ml IV Total 150 ml # Voids 4 General Appearance: Alert, Oriented X3, Cooperative Lungs: Clear to auscultation Cardiovascular: Regular rate, Normal S1, Normal S2 Abdomen: Normal bowel sounds, Soft, No tenderness Extremities: No edema Medications Current Medications Medications Dose Ordered Sig/Kassie Route Start Time Stop Time Status Last Admin Dose Admin Acetaminophen/ Hydrocodone Bitart 1 tab Q4HP PRN PO 04/08/25 16:45 04/10/25 14:54 1 TAB Ondansetron HCl 4 mg Q4HP PRN IV 04/08/25 16:45 04/09/25 23:04 4 MG Docusate Sodium 100 mg BIDPRN PRN PO 04/08/25 16:45 Acetaminophen 650 mg Q6HP PRN PO 04/08/25 16:45 Ceftriaxone Sodium 50 ml @ 100 mls/hr DAILY@09 IV 04/09/25 09:00 04/10/25 09:48 100 MLS/HR Metronidazole 100 ml @ 100 mls/hr Q8HR IV 04/08/25 22:00 04/10/25 14:46 100 MLS/HR Pantoprazole Sodium 40 mg DAILY IV 04/09/25 10:00 04/10/25 09:49 40 MG Sodium Chloride 1,000 ml @ 75 mls/hr [id number] IV 04/09/25 10:30 04/10/25 14:31 75 MLS/HR Morphine Sulfate 2 mg Q4HPRN PRN IV 04/09/25 10:30 04/10/25 08:11 2 MG Laboratory Results Laboratory Tests 04/10/25 04:41 Chemistry Test 04/10/25 04:41 Calcium Level 8.5 mg/dL (8.7-10.4) L Urinalysis Test 04/08/25 10:06 04/08/25 11:40 Urine Color Light-yellow (Yellow) Urine Clarity Clear (Clear) Urine pH 7.0 (5.0-9.0) Urine Specific [place] 1.019 (1.001-1.035) Urine Protein Negative (Negative) Urine Ketones Negative (Negative) Urine Blood Negative /uL (Negative) Urine Nitrite Negative (Negative) Urine Bilirubin Negative (Negative) Urine Urobilinogen Normal mg/dL (Negative) Urine Leukocyte Esterase Negative /uL (Negative) Urine RBC 1 /hpf (0 - 4) Urine Microscopic WBC 3 /HPF (0-5) Urine Squamous Epithelial Cells Few /hpf (<5) Urine Bacteria None seen /hpf (None Seen) Urine Glucose Normal mg/dL (Normal) Urine Test Negative (Negative) Assessment/Plan Assessment/Plan Acute diverticulitis Sepsis Morbid obesity PLAN: Advance diet to soft Rocephin Flagyl IV fluids Pain control IV Protonix Plan discussed with: Patient My Orders Orders - IRMA FOSTER MD Procedure Category Date Status Time Mechanical Soft Diet DIET 04/10/25 Transmitted Lunch Date of Service: Apr 10, 2025 Billing Provider: IRMA FOSTER MD Common Visit Codes: [id number] INP/OBS CARE(HIGH) IRMA FOSTER MD Apr 10, 2025 16:39
[2025-04-11 01:13] VITALS: BP 119/73; PULSE 64; RESP 19; TEMP 98; O2SAT 96
[2025-04-11 04:56] VITALS: BP 118/67; PULSE 66; RESP 19; TEMP 97.8; O2SAT 97
[2025-04-11 08:00] VITALS: PULSE 66; RESP 16; O2SAT 93
[2025-04-11 09:04] VITALS: BP 119/69; PULSE 66; RESP 16; TEMP 98.1; O2SAT 93
[2025-04-11] MEDS ORDERED: METR-344 PO (10:15)
[2025-04-11] MEDS ORDERED: CIPR-173 PO (10:15)
--- NOTE | 2025-04-11 10:17 | DVHDS2 ---
Discharge Summary Date of Admission Apr 08, 2025 at 16:42 Date of Discharge: Apr 11, 2025 Labs/Diagnostic Data: Laboratory Results Test 04/10/25 04:41 04/09/25 06:18 04/08/25 11:40 04/08/25 10:06 White Blood Count 8.8 10^3/uL (4.4-10.8) Red Blood Count 3.88 10^6/uL (4.0-5.20) Hemoglobin 13.1 g/dL (12.2-16.2) Hematocrit 36.6 % (36.0-46.0) Mean Corpuscular Volume 94.3 fL (80.0-100.0) Mean Corpuscular Hemoglobin 33.7 pg (28.0-32.0) Mean Corpuscular Hemoglobin Concent 35.7 g/dL (32.0-36.0) Red Cell Distribution Width 13.8 % (11.8-14.3) Platelet Count 202 10^3/uL (140-450) Mean Platelet Volume 7.8 fL (6.9-10.8) Neutrophils (%) (Auto) 63.2 % (37.0-80.0) Lymphocytes (%) (Auto) 28.6 % (10.0-50.0) Monocytes (%) (Auto) 6.2 % (0.0-12.0) Eosinophils (%) (Auto) 1.6 % (0.0-7.0) Basophils (%) (Auto) 0.4 % (0.0-2.0) Neutrophils # (Auto) 5.6 10 ^3/uL (1.6-8.6) Lymphocytes # (Auto) 2.5 10 ^3/uL (0.4-5.4) Monocytes # (Auto) 0.5 10 ^3/uL (0-1.3) Eosinophils # (Auto) 0.1 10 ^3/uL (0-0.8) Basophils # (Auto) 0 10 ^3/uL (0-0.2) Nucleated Red Blood Cells 0.1 % Sodium Level 140 mmol/L (136-145) Potassium Level 4.1 mmol/L (3.5-5.1) Chloride Level 104 mmol/L (98-107) Carbon Dioxide Level 29 mmol/L (20-31) Anion Gap 7 (5-15) Blood Urea Nitrogen 9 mg/dL (9-23) Creatinine 0.84 mg/dL (0.550-1.02) Glomerular Filtration Rate Calc 88 mL/min (>90) BUN/Creatinine Ratio 10.7 (10.0-20.0) Serum Glucose 93 mg/dL (74-106) Calcium Level 8.5 mg/dL (8.7-10.4) Total Bilirubin 1.0 mg/dL (0.2-1.0) Aspartate Amino Transferase (AST) 17 U/L (13-40) Alanine Aminotransferase (ALT) 11 U/L (7-40) Alkaline Phosphatase 71 U/L (46-116) Total Protein 5.6 g/dL (5.7-8.2) Albumin 3.8 g/dL (3.2-4.8) Urine Test Negative (Negative) Urine Color Light-yellow (Yellow) Urine Clarity Clear (Clear) Urine pH 7.0 (5.0-9.0) Urine Specific [place] 1.019 (1.001-1.035) Urine Protein Negative (Negative) Urine Ketones Negative (Negative) Urine Blood Negative /uL (Negative) Urine Nitrite Negative (Negative) Urine Bilirubin Negative (Negative) Urine Urobilinogen Normal mg/dL (Negative) Urine Leukocyte Esterase Negative /uL (Negative) Urine RBC 1 /hpf (0 - 4) Urine Microscopic WBC 3 /HPF (0-5) Urine Squamous Epithelial Cells Few /hpf (<5) Urine Bacteria None seen /hpf (None Seen) Urine Glucose Normal mg/dL (Normal) Other Laboratory Tests 04/10/25 04:41 Brief Hx & Hospital Course: Final diagnoses: Acute diverticulitis Sepsis Morbid obesity She was treated conservatively with a clear liquid diet and IV antibiotics and IV fluids Pain control was achieved The patient improved and her diet was advanced yesterday Today she is doing also better No nausea no vomiting Mild abdominal pain in the left lower quadrant She is stable for discharge Discharged home on Cipro and Flagyl for 7 days Advance diet slowly as tolerated Follow up with her primary care physician as soon as possible Condition at Discharge: Stable Final Diagnosis/Problems List Acute diverticulitis Sepsis Morbid obesity Discharge Disposition: Home SNF Discharge Will this Physician continue t: No Discharge Instruct/Medications No Active Prescriptions or Reported Meds Discharge Statement: "Patient was advised to return to the ER or call 911 if any headaches, dizziness, shortness of breath, chest pain, abdominal pain, bleeding, fevers, or worsening of medical condition. Patient was counseled about treatment plan, medications, possible side effects, patientverbalized understanding. All questions were answered to the best of my ability. This discharge took greater then 30 minutes in planning, reviewing documentation, counseling the patient, and discussing with other team members." ASSESSMENT ASSESSMENT Assessment Date of Service: Apr 11, 2025 Billing Provider: IRMA FOSTER MD Common Visit Codes: 36091-NAZ/OBS DISCH DAY >30min IRMA FOSTER MD Apr 11, 2025 10:17
[2025-04-11] MEDS ORDERED: HYDR-4902 PO (11:21)
[2025-04-11 12:02] VITALS: BP 119/69; PULSE 66; RESP 16; TEMP 98.1; O2SAT 93
[2025-04-11 13:00] VITALS: BP 147/91; PULSE 65; RESP 18; TEMP 98.1; O2SAT 96
== END 2025-04-11 13:20 | disposition home or self-care (01) | DRG 720 ==
LOC: ER 09:47 → OVERFLOW 16:42 → CENTRAL 04-09 02:21
PROVIDERS: ADMIT Internal Medicine Geriatric Medicine; ATTEND Internal Medicine Geriatric Medicine
DX: A41.9 Sepsis, unspecified organism (principal); Z68.44 Body mass index [BMI] 60.0-69.9, adult; K76.0 Fatty (change of) liver, not elsewhere classified; E66.01 Morbid (severe) obesity due to excess calories; K57.32 Diverticulitis of large intestine without perforation or abscess without bleeding; F17.210 Nicotine dependence, cigarettes, uncomplicated; N20.0 Calculus of kidney; K42.9 Umbilical hernia without obstruction or gangrene; Z90.49 Acquired absence of other specified parts of digestive tract; Z79.899 Other long term (current) drug therapy
CPT/HCPCS: 36415; 74177; 80048; 80053; 81001; 81025; 85025; 96361; 96365; 96367; 96375; G0378; J1885; J2405; J2470; J3490